=== PATIENT | female | born 1960 | race Caucasian/White ===

== ENCOUNTER 2023-05-10 15:06 | Observation (INO) | payer MEDICARE, SELFPAY ==
[2023-05-10] VITALS (19 sets, daily range): BP systolic 105–128; BP diastolic 66–92; PULSE 90–155; RESP 16–32; TEMP 36.7; O2SAT 94–100; BMI 20.1
--- NOTE | 2023-05-10 15:36 | XR_ITS ---
WS: [id number] PORTABLE CHEST HISTORY: sob COMPARISON: None available. Prior median sternotomy. Hyperinflation of the lungs. No pneumonia. Normal vascularity. No pleural effusion or pneumothorax. Cardiac size: Normal. Mediastinum/Aorta: Normal mediastinum. No osseous abnormality seen. XR/XR chest 1V portable [id number] IMPRESSION: Chronic emphysema. No acute pneumonia.
--- NOTE | 2023-05-10 16:37 | ECG_ITS ---
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 Measurements Intervals [place] Rate: 142 P: 72 NV: 141 QRS: 70 QRSD: 89 T: 83 QT: 328 QTc: 505 Interpretive Statements SINUS TACHYCARDIA ST DEVIATION AND MODERATE T-WAVE ABNORMALITY, CONSIDER LATERAL ISCHEMIA [-0.1+ mV T-WAVE IN I/aVL/V5/V6] No previous ECG available for comparison Electronically Signed On 05-11-2023 6:04:38 CDT by Agus Fernandez M.D. [id number]
--- NOTE | 2023-05-10 16:46 | ED_ITS ---
HPI - SOB/Dyspnea General: Chief Complaint: Shortness of Breath/Dyspnea Stated Complaint: SOB, Has COPD Time Seen by Provider: 05/10/23 16:36 Source: patient Mode of arrival: ambulatory History of Present Illness: HPI Narrative: 62-year-old female presents emergency room with complaints of shortness of b reath and rapid heart rate. She states this has been going on for the last 12 years. She states its been unchanged over the last 12 years. She does think it got worse over the last 4 days. She is traveling and ran out of oxygen. She is normally on 4 L. On arrival here patient is tachycardic is irregular. MD elicited complaint: shortness of breath and cough Pertinent past history: COPD Timing: constant Exacerbating factors: nothing Relieving factors: nothing Known history of: COPD Associated symptoms: Reports palpitations; Deny abdominal pain, chest pain, fever(s), nausea, orthopnea or vomiting Treatment prior to arrival: none Review of Systems Const: Denies: fever(s), chills, fatigue or malaise Card: Reports: palpitations; Denies: chest pain, edema, dyspnea on exertion or orthopnea Resp: Reports: dyspnea, non-productive cough and wheezing; Denies: productive cough GI: Denies: abdominal pain, nausea, vomiting, hematemesis, coffee ground emesis, diarrhea, constipation, bloating, hematochezia or melena : Denies: flank pain, difficulty voiding, dysuria, urinary frequency or urinary urgency Skin/Breast: Denies: rash or pruritus PFSH ED PFSH: Medical History Acute hypernatremia Anxiety End stage COPD Failure to thrive Hospice care Hypertension New onset a-fib Surgical History H/O aortic valve replacement Family History Other CAD (coronary artery disease) Social History Smoking and tobacco status: former smoker Lives independently: Yes Housing: House Physical Exam Const: GENERAL APPEARANCE: cooperative and comfortable ORIENTATI ON/CONSCIOUSNESS: Yes awake, Yes oriented to person, Yes oriented to place and Yes oriented to time HENMT: COMMON NORMALS: normocephalic, atraumatic and hearing grossly normal bilaterally HEAD & SCALP: normocephalic and atraumatic Resp: COMMON NORMALS: normal respiratory effort, No retractions, No use of accessory muscles and clear to auscultation bilaterally AUSCULTATION: clear to auscultation bilaterally Cardio: COMMON NORMALS: No murmurs present (Cardio) RATE: tachycardic RHYTHM: abnormal rhythm irregularly irregular GI: COMMON NORMALS: Soft to palpation and No hepatosplenomegaly present AUSCULTATION: Yes normoactive bowel sounds PALPATION: Yes Soft to palpation, No Tenderness to palpation present (GI), No Guarding due to palpation present (GI) and Yes No hepatosplenomegaly present Extremity: COMMON NORMALS: normal to inspection, capillary refill normal, no clubbing, cyanosis or edema, no calf tenderness and no pedal edema Neuro: SENSORIUM/ORIENTATION: Yes oriented to person, Yes oriented to place and Yes oriented to time Skin: COMMON NORMALS: no rashes or lesions noted GENERAL SKIN EXAM: no rashes or lesions noted Course Vital Signs: Vital signs: Vital Signs Temperature 98.1 F 05/11/23 07:31 Pulse Rate 94 05/11/23 11:15 Respiratory Rate 22 H 05/11/23 11:45 Blood Pressure 130/79 05/11/23 07:31 Pulse Oximetry 94 05/11/23 11:45 Oxygen Delivery Me thod Nasal Cannula 05/11/23 11:15 Oxygen Flow Rate 3 05/11/23 07:41 MDM - SOB/Dyspnea Medical Decision Making Patient has significant hyponatremia as well as an irregularly irregular heart rate appears to be in A-fib responded well to diltiazem. Will admit for correction of hyponatremia discussed with Dr. Diaz. Orders written Medical Records I reviewed the patient's medical records. Lab Data I reviewed the patient's lab results. 05/11/23 03:21 05/11/23 03:21 Labs/Radiology: Radiology Impressions Chest X-Ray 05/10/23 15:36 IMPRESSION: Chronic emphysema. No acute pneumonia. Chest CTA 05/10/23 18:38 IMPRESSION: 1. No acute findings. 2. Severe emphysema. COMMENTS: In the absence of a history or active diagnosis of lung cancer, it is recommended that this patient with emphysema be evaluated for enrollment in a low dose CT lung cancer screening program. Laboratory Results WBC 5.8 10^3/uL (4.0-10.0) 05/10/23 16:52 RBC 4.46 10^6/uL (4.1-5.3) 05/10/23 16:52 Hgb 12.9 g/dL (11.5-15.3) 05/10/23 16:52 Hct 41.2 % (37.0-47.0) 05/10/23 16:52 MCV 92.4 fl (81-99) 05/10/23 16:52 MCH 28.9 pg (28.0-34.0) 05/10/23 16:52 MCHC 31.3 g/dL (30.0-36.0) 05/10/23 16:52 RDW 11.9 % (12.1-15.1) L 05/10/23 16:52 Plt Count 175 10^3/cmm (130-400) 05/10/23 16:52 MPV 10.0 fL (7.4-10.4) 05/10/23 16:52 Neut % (Auto) 69.0 % 05/10/23 16:52 Lymph % (Auto) 22.3 % 05/10/23 16:52 [place] % (Auto) 6.2 % 05/10/23 16:52 Eos % (Auto) 1.7 % 05/10/23 16:52 Baso % (Auto) 0.5 % 05/10/23 16:52 Neut # (Auto) 3.99 10^3/uL (1.8-7.7) 05/10/23 16:52 Lymph # (Auto) 1.3 10^3/uL (0.8-4.8) 05/10/23 16:52 [place] # (Auto) 0.4 10^3/uL (0.2-0.9) 05/10/23 16:52 Eos # (Auto) 0.1 10^3/uL (0.0-0.8) 05/10/23 16:52 Baso # (Auto) 0.0 10^3/uL (0.0-0.1) 05/10/23 16:52 Nucleated RBC % (auto) 0 % 05/10/23 16:52 Nucleated RBCs # 0.0 /100WBC 05/10/23 16:52 D-Dimer 3.45 ug/mIFEU (0-0.59) H 05/10/23 16:52 Sodium 146 mmol/L (136-145) H 05/10/23 16:52 Potassium 3.9 mmol/L (3.5-5.1) 05/10/23 16:52 Chloride 97 mmol/L (98-107) L 05/10/23 16:52 Carbon Dioxide 41 mmol/L (22-29) H 05/10/23 16:52 Anion Gap 11.9 (5-19) 05/10/23 16:52 BUN 20 mg/dL (8-23) 05/10/23 16:52 Creatinine 0.3 mg/dL (0.5-0.9) L 05/10/23 16:52 GFR Calculation 224.0 mL/min (90-130) H 05/10/23 16:52 Glucose 122 mg/dL (65-115) H 05/10/23 16:52 Estimat Average Glucose 114 05/10/23 16:52 Hemoglobin A1c 5.6 % (4.0-6.0) 05/10/23 16:52 Calculated Osmolality 306 mOsm/kg (285-295) H 05/10/23 16:52 Calcium 9.2 mg/dL (8.5-10.5) 05/10/23 16:52 Total Bilirubin 0.2 mg/dL (0.15-1.2) 05/10/23 16:52 AST 29 U/L (0-32) 05/10/23 16:52 ALT 50 U/L (0-33) H 05/10/23 16:52 Alkaline Phosphatase 44 U/L (35-105) 05/10/23 16:52 Troponin T Baseline 32 ng/L (0-10) H 05/10/23 16:52 Total Protein 6.9 g/dL (6.6-8.7) 05/10/23 16:52 Albumin 4.5 g/dL (3.5-5.2) 05/10/23 16:52 Globulin 2.4 g/dL (1.3-4.6) 05/10/23 16:52 TSH 1.15 uIU/mL (0.27-4.20) 05/10/23 16:52 Discharge Plan Discharge Patient Disposition: Admitted As Inpatient Admit Provider: Garth Menezes Clinical Impression: Atrial fibrillation, Acute exacerbation of chronic obstructive airways disease, Acute hyponatremia Condition: Stable Coding Level of Care Code ED Promotions Team Leader for Mukesh Hamlin
[2023-05-10] MEDS: dilTIAZem 5 mg/mL SDV 5 mL 10 MG IVP (16:56)
[2023-05-10] MEDS: dilTIAZem 100 MG in sodium chloride 0.9% (add-van) 100 ML IV (16:57)
--- NOTE | 2023-05-10 17:01 | PC.NURSE ---
assumed care 1630
[2023-05-10 17:04] LABS: Basophils % 0.5 %; Eosinophils # 0.1 10^3/uL (0.0-0.8); Eosinophils % 1.7 %; Hematocrit 41.2 % (37.0-47.0); Hemoglobin 12.9 g/dL (11.5-15.3); Lymphocytes # 1.3 10^3/uL (0.8-4.8); Lymphocytes % 22.3 %; Mean Corpuscular HGB Conc 31.3 g/dL (30.0-36.0); Mean Corpuscular Hemoglobin 28.9 pg (28.0-34.0); Mean Corpuscular Volume 92.4 fl (81-99); Monocytes # 0.4 10^3/uL (0.2-0.9); Monocytes % 6.2 %; Neutrophils # 3.99 10^3/uL (1.8-7.7); Nucleated Red Blood Cells % 0 %; Platelet Count 175 10^3/cmm (130-400); Red Blood Count 4.46 10^6/uL (4.1-5.3); Red Cell Distribution Width 11.9 % (12.1-15.1); White Blood Count 5.8 10^3/uL (4.0-10.0)
[2023-05-10 17:28] LABS: Troponin(5th) Baseline 32 ng/L (0-10)
[2023-05-10 17:37] LABS: Alanine Aminotransferase 50 U/L (0-33); Albumin Level 4.5 g/dL (3.5-5.2); Alkaline Phosphatase 44 U/L (35-105); Anion Gap 11.9 (5-19); Aspartate Amino Transferase 29 U/L (0-32); Blood Urea Nitrogen 20 mg/dL (8-23); Calcium 9.2 mg/dL (8.5-10.5); Chloride 97 mmol/L (98-107); Globulin 2.4 g/dL (1.3-4.6); Glucose 122 mg/dL (65-115); Osmolality Calculated 306 mOsm/kg (285-295); Potassium 3.9 mmol/L (3.5-5.1); Sodium 146 mmol/L (136-145); Thyroid Stimulating Hormone 1.15 uIU/mL (0.27-4.20); Total Bilirubin 0.2 mg/dL (0.15-1.2); Total Protein 6.9 g/dL (6.6-8.7)
[2023-05-10 17:38] LABS: Creatinine Clr Calc Pharmacy 149.5909
[2023-05-10 17:39] LABS: Carbon Dioxide 41 mmol/L (22-29)
--- NOTE | 2023-05-10 17:45 | P.HP_ITS ---
Providers/Chief Complaint Chief Complaint: SOB, Has COPD History of Present Illness Shy Flores is a 62 year old female with history of aortic valve replacement, end-stage COPD, who recently rescinded her hospice care at [place] in the process of moving to [place] with her son presented with chief complaint of worsening of shortness of breath, in the ER she was diagnosed with A-fib RVR currently on Cardizem drip at 10 mg, heart rate fluctuating between 1 10-1 15, patient does not experience any chest pain or shortness of breath at time of my evaluation at baseline uses 2 L. Patient is stating that she has rescinded her hospice care which was recommended because of her end-stage COPD noncompliance and significant weight loss. She was living alone in [place]. Son is planning to take her to [place] in his car, he is stating that he has enough oxygen tanks. Patient is not on aspirin or Eliquis despite A-fib, she is not sure why. Patient is stating that she is DNI/DNI Review of Systems Const: Reports: chills Eyes: Denies: change in vision ENMT: Denies: throat pain Card: Denies: chest pain Resp: Reports: dyspnea GI: Denies: abdominal pain : Denies: urinary frequency Musc: Reports: back pain; Denies: neck pain Skin/Breast: Denies: rash Neuro: Denies: headache(s) Psych: Reports: anxiety Medications/Allergies Allergies Allergy/AdvReac Type Severity Reaction Status Date / Time ketorolac [From Toradol] Allergy ADR-Gastrointestinal Verified 05/10/23 16:56 Upset Penicillins Allergy ALGY-Rash Verified 05/10/23 16:56 PFSH Acute PFSH: Medical History (Updated 05/10/23 @ 18:32 by Garth Menezes MD) Anxiety End stage COPD Hospice care Hypertension Surgical History (Updated 05/10/23 @ 18:32 by Garth Menezes MD) H/O aortic valve replacement Family History (Updated 05/10/23 @ 18:33 by Garth Menezes MD) Other CAD (coronary artery disease) Social History (Updated 05/10/23 @ 18:33 by Garth Menezes MD) Smoking and tobacco status: former smoker Lives independently: Yes Housing: House Vitals/I&O/Wt Last Vital Signs Temp 98.1 F 05/10/23 15:14 Pulse 155 H 05/10/23 15:14 Resp 18 05/10/23 15:14 BP 105/74 05/10/23 15:14 Pulse Ox 99 05/10/23 15:14 O2 Del Method Nasal Cannula 05/10/23 15:14 O2 Flow Rate 4 05/10/23 15:14 Weight last 48 hrs Weight 49.895 kg Physical Exam Narrative: Malnourished Weight loss is apparent Muscle mass loss Currently on 2 L A-fib RVR Currently on Cardizem drip Awake and alert GCS 15 Nonfocal neuro exam Variable S1-S2 abdomen soft No signs of edema Data 05/10/23 16:52 05/10/23 16:52 A&P Assessment and plan (1) Acute hypernatremia: (2) New onset a-fib: (3) Failure to thrive: Plan A-fib RVR Chronic history Patient at home takes diltiazem 240 mg, I do not see any aspirin or Eliquis in her home meds She was on hospice at some point for end-stage COPD which she has recently rescinded I would put her on higher dose of Cardizem 360 mg on discharge, start p.o. Cardizem along Cardizem drip [id number] 4 I will prescribe her Eliquis at the time of discharge as well Requested D-dimer TSH is normal End-stage COPD 3 L of oxygen at baseline Patient is moving to [place] DNR/DNI No active wheezing Continue DuoNeb or Xopenex Hypertension: Hold antihypertensive regimen because patient is on Cardizem drip which can drop her blood pressure Muscle mass loss, protein calorie malnourishment Patient will need Ensure, DNR/DNI Cardiac diet Currently on therapeutic Lovenox Son at the bedside Plan to discharge her tomorrow Attestations Medical Necessity Statement*: Plan to discharge her within 48 hours Diagnoses Acute hypernatremia E87.0 New onset a-fib I48.91 Failure to thrive
[2023-05-10 18:11] LABS: Add Urine Microscopic? NO; Charge for UA Resulting for Rev
[2023-05-10 18:19] LABS: D Dimer 3.45 ug/mIFEU (0-0.59)
[2023-05-10 18:22] LABS: Urine Appearance Clear (CLEAR); Urine Color Yellow (Yellow); pH Urine 8 (5-7)
[2023-05-10 18:23] LABS: Bilirubin Urine Neg (Negative); Blood Urine Neg (Negative); Glucose Urine UA Norm (Normal); Ketones Urine 1+ (Negative); Leukocyte Esterase Urine Negative (Negative); Nitrate Urine Negative (Negative); Protein Urine Neg (Negative); Urobilinogen Urine Norm (Negative)
--- NOTE | 2023-05-10 18:38 | CTR_ITS ---
PROCEDURE INFORMATION: Exam: CTA Chest With Contrast Exam date and time: 05/10/2023 7:22 PM Age: 62 years old Clinical indication: Abnormal findings; Abnormal diagnostic tests; Elevated d-dimer; Shortness of breath; Prior surgery; Surgery date: 6+ months; Surgery type: Aortic valve; Patient HX: SOB with afib. D dimer of 3.45. History of copd. TECHNIQUE: Imaging protocol: Computed tomographic angiography of the chest with contrast. Exam focused on the arteries. 3D rendering (Not supervised by radiologist): MIP and/or 3D reconstructed images were created by the technologist. Radiation optimization: All CT scans at this facility use at least one of these dose optimization techniques: automated exposure control; mA and/or kV adjustment per patient size (includes targeted exams where dose is matched to clinical indication); or iterative reconstruction. Contrast material: OMNI 350; Contrast volume: 62 ml; Contrast route: INTRAVENOUS (IV); REPORTING DATA: Count of CT and Cardiac NM exams in prior 12 months: This patient has received 0 known CTs and 0 known cardiac nuclear medicine studies in the 12 months prior to the current study. COMPARISON: CR XR chest 1V portable [id number] 05/10/2023 3:41 PM RADIATION DOSE METRICS: Total DLP (mGy-cm): 184.12 FINDINGS: Pulmonary arteries: Normal. No pulmonary emboli. Aorta: Right sided aortic arch. No aneurysm or dissection. Lungs: Severe emphysema. Mild scattered scarring in both lungs. No consolidation. No nodule. Pleural spaces: Unremarkable. No pneumothorax. No pleural effusion. Heart: Unremarkable. No cardiomegaly. No pericardial effusion. Lymph nodes: Calcified right hilar lymph nodes. Spleen: Splenomegaly. Bones/joints: Sternotomy changes. Mild degenerative changes of the spine. No acute fracture. Soft tissues: Unremarkable. CT/CT angio chest PE protcl [id number] IMPRESSION: 1. No acute findings. 2. Severe emphysema. COMMENTS: In the absence of a history or active diagnosis of lung cancer, it is recommended that this patient with emphysema be evaluated for enrollment in a low dose CT lung cancer screening program.
--- NOTE | 2023-05-10 18:39 | ECG_ITS ---
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 Measurements Intervals [place] Rate: 117 P: 76 DC: 154 QRS: 78 QRSD: 99 T: 89 QT: 297 QTc: 415 Interpretive Statements SINUS TACHYCARDIA POSSIBLE RIGHT ATRIAL ENLARGEMENT [0.25mV P-WAVE] POSSIBLE LEFT ATRIAL ENLARGEMENT [-0.1mV P-WAVE IN V1/V2] PATTERN CONSISTENT WITH PULMONARY DISEASE SEPTAL MYOCARDIAL INFARCTION , OF INDETERMINATE AGE [40+ ms Q WAVE IN V1/V2] Compared to ECG 05/10/2023 16:37:09 Myocardial infarct finding now present T-wave abnormality no longer present Possible ischemia no longer present Electronically Signed On 05-11-2023 6:02:26 CDT by Agus Fernandez M.D. [id number]
[2023-05-10] MEDS: iohexol 350 mg/mL 500 mL Btl (per mL) IV (19:29)
[2023-05-10 19:39] LABS: Troponin 5 2HR 29.48 ng/L (0-10)
[2023-05-10 19:45] LABS: Troponin 5 2HR Delta -2.52 ABS# (0-10)
--- NOTE | 2023-05-10 19:48 | USCV_ITS ---
Shy Flores Age: 62 Gender: F : 1960 Exam Date: 05/10/2023 21:29 Ordering Phys: Garth Menezes MD Technologist: DINO Exam Location: [facility] [place] Indication: short of breath BP: / HR: 92 Rhythm: Sinus Technical Quality: Poor secondary to COPD MEASUREMENTS (Male / Female) Normal Values 2D ECHO LV Diastolic Diameter PLAX 5.2 cm 4.2 - 5.9 / 3.9 - 5.3 cm LV Systolic Diameter PLAX 3.4 cm IVS Diastolic Thickness 0.6 cm 0.6 - 1.0 / 0.6 - 0.9 cm IVS Systolic Thickness 0.9 cm LVPW Diastolic Thickness 0.6 cm 0.6 - 1.0 / 0.6 - 0.9 cm LVPW Systolic Thickness 1.0 cm LVOT Diameter 2.2 cm LV Ejection Fraction 2D Teich 62.1 % LA Diameter 2.2 cm IVC Diameter 1.6 cm M-MODE MV E Point Septal Separation 0.5 cm DOPPLER LVOT Peak Velocity 67.0 cm/s MV Area PHT 4.4 cm squared Mitral E to A Ratio 1.1 MV E' Velocity 57.0 cm/s PV Peak Velocity 87.0 cm/s FINDINGS Left Ventricle Normal left ventricular cavity size. Normal left ventricular systolic function. Left ventricular ejection fraction is estimated at 60-65 %. No diagnostic regional wall motion abnormality. Right Ventricle Normal right ventricular size and systolic function. Right Atrium Normal right atrial size. Left Atrium Normal left atrial size. Mitral Valve Thickened mitral valve. Aortic Valve Aortic valve not well visualized. No aortic valve stenosis. No aortic valve regurgitation. Tricuspid Valve Structurally normal tricuspid valve. Trace tricuspid valve regurgitation. Pulmonic Valve Pulmonic valve not well visualized. Pericardium No pericardial effusion. Aorta Normal size aortic root and proximal ascending aorta. IVC Normal IVC dimension with >50% respiratory change of the inferior vena cava. CONCLUSIONS 1. This is a technically difficult study. 2. Normal left ventricular cavity size and systolic function. Left ventricular ejection fraction is estimated at 60-65 %. No diagnostic regional wall motion abnormality. 3. No prior similar studies to compare. Keke Zhang MD (Electronically Signed) Final Date: 11 May 2023 15:28 S
[2023-05-10] MEDS: HYDROcodone-acetaminophen 5-325 mg Tablet 1 TAB PO (20:11)
[2023-05-10] MEDS: dilTIAZem 30 mg Tablet 60 MG PO (20:11)
[2023-05-10 20:13] LABS: Estmated Average Glucose 114; Hemoglobin A1C 5.6 % (4.0-6.0)
[2023-05-10 20:32] LABS: Vitamin B12 610 pg/mL (232-1245)
[2023-05-10] MEDS: enoxaparin 60 mg/0.6 mL Syringe 50 MG SUBCUT (21:13)
[2023-05-10] MEDS: dextrose 5%-sod chloride 0.45% 1,000 ML 75 ML IV (21:16)
--- NOTE | 2023-05-10 22:39 | ECG_ITS ---
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 Measurements Intervals [place] Rate: 83 P: 66 NC: 143 QRS: 63 QRSD: 98 T: 240 QT: 363 QTc: 428 Interpretive Statements SINUS RHYTHM ANTEROSEPTAL MYOCARDIAL INFARCTION , AGE INDETERMINATE Compared to ECG 05/10/2023 18:35:41 Sinus tachycardia no longer present Myocardial infarct finding still present Electronically Signed On 05-11-2023 6:02:05 CDT by Agus Fernandez M.D. [email or web address] [email or web address] medical specialty [email or web address].[email or web address]/[id number]
[2023-05-10 23:22] LABS: Troponin 5 6HR 30.16 ng/L (0-10)
--- NOTE | 2023-05-10 23:24 | PM.MISC ---
Miscellaneous Note Purpose of Documentation: CTSP Re: leaving AMA Note: Pt with severe SOLIS and generalized back pain. Pt was on percocet 10 mg prior to admission. She was on hopsice but revoked due to dis-satisfication with care/meds. She and her son are on their way to [place] and they lost AC in their car. They want to leave tomorrow. Pt and son reasonable and appreciative of care. I sat down with them and reviewed the medication that they have and need. While she prefers Klonopin they have lorazepam 1 mg tabs. I recommended continuing those until they see a new physician. Will change to ativan while here. They have run out of pain medications and I will order for discharge. Her afib is now converted and managed with short acting cardizem. While the son did not have pill box he reports that he has the bottle in the Jeep he just forgot to add to pill box. To do: Dilaudid 1 mg q2H prn Solis percocet 10/325 q4h prn d/c diltiazem encourage fluids. con't IV fluids, DO NOT change bag of fluids, stop after current bag Alma CASTILLO present for discussion and agrees with plan. Pt and son agree with plan.
[2023-05-10 23:27] LABS: Troponin 5 6HR Delta -1.84 ng/L (0-12)
[2023-05-10] MEDS: HYDROmorphone 1 mg/mL INJ 1 mL IVP (23:36)
[2023-05-10] MEDS: ipratropium-albuterol 3 mL Neb INHALATION (23:58)
[2023-05-11] VITALS (9 sets, daily range): BP systolic 107–130; BP diastolic 72–79; PULSE 72–94; RESP 16–22; TEMP 36.7–36.9; O2SAT 94–97
[2023-05-11] MEDS: dilTIAZem 30 mg Tablet 60 MG PO ×2 (01:59→08:29)
[2023-05-11 03:36] LABS: Basophils % 0.7 %; Eosinophils # 0.2 10^3/uL (0.0-0.8); Eosinophils % 3.5 %; Hematocrit 31.2 % (37.0-47.0); Hemoglobin 9.6 g/dL (11.5-15.3); Lymphocytes # 1.8 10^3/uL (0.8-4.8); Lymphocytes % 38.6 %; Mean Corpuscular HGB Conc 30.8 g/dL (30.0-36.0); Mean Corpuscular Hemoglobin 28.7 pg (28.0-34.0); Mean Corpuscular Volume 93.4 fl (81-99); Mean Platelet Volume 9.1 fL (7.4-10.4); Monocytes # 0.3 10^3/uL (0.2-0.9); Monocytes % 5.9 %; Neutrophils % 50.4 %; Nucleated Red Blood Cells % 0 %; Platelet Count 131 10^3/cmm (130-400); Red Blood Count 3.34 10^6/uL (4.1-5.3); White Blood Count 4.6 10^3/uL (4.0-10.0)
[2023-05-11] MEDS: oxyCODONE-APAP 10-325 mg Tablet 1 TAB PO ×2 (03:56→11:30)
[2023-05-11] MEDS: ondansetron 2 mg/ML SDV 2 mL 4 MG IVP (03:56)
[2023-05-11 03:58] LABS: Anion Gap 6.6 (5-19); Blood Urea Nitrogen 13 mg/dL (8-23); Calcium 8.8 mg/dL (8.5-10.5); Chloride 101 mmol/L (98-107); Glomerular Filtration Rate 160.7 mL/min (90-130); Glucose 165 mg/dL (65-115); Magnesium 1.6 mg/dL (1.7-2.3); Osmolality Calculated 308 mOsm/kg (285-295); Phosphorus 3.1 mg/dL (2.5-4.5); Potassium 4.6 mmol/L (3.5-5.1); Sodium 147 mmol/L (136-145)
[2023-05-11] MEDS: pneumococcal (23 valent) SDV 0.5 mL IM (03:58)
[2023-05-11 04:03] LABS: Carbon Dioxide 44 mmol/L (22-29)
[2023-05-11] MEDS: ipratropium-albuterol 3 mL Neb INHALATION (07:40)
[2023-05-11] MEDS: acetaminophen 500 mg Tablet PO (09:47)
--- NOTE | 2023-05-11 10:18 | PM.DCS ---
Discharge Providers Date of Admission: 05/10/23 17:47 Date of Discharge: May 11, 2023 Attending Provider at Admission: Garth Menezes MD Attending Provider at Discharge: Garth Menezes MD Diagnoses at Discharge Discharge Diagnosis (1) Acute hypernatremia: Status: Acute (2) New onset a-fib: Status: Acute (3) Failure to thrive: Status: Acute Reason for Visit Reason for Visit: SOB, Has COPD Hospital Course Hospital Course 62-year female who recently rescinded her hospice care for end-stage COPD, uses 3 L at baseline, planning to move to [place] with her son, uses opioids for her back pain presented with chief complaint palpitation shortness of breath she was diagnosed with A-fib RVR. She was put on Cardizem drip, at baseline she was using Cardizem extended release at home which I have increased at the time of discharge, [id number] is 4 added Eliquis as well, I prescribed Percocet to our pharmacy which was closed today I have sent another prescription to [facility]. We will give her Medrol pack along Spiriva and Advair. Patient seems to be doing poorly, she is DNI/DNI, losing muscle mass, protein calorie malnourishment. Son is stating that they have a doctor lined up in [place], they are eager to start the journey to [place] at this point. She does have a oxygen concentrator and 3 oxygen tanks, I did notify socially responsible investment adviser to help her out for oxygen supply at for her journey. Patient cannot do air travel, that was made clear to the son. Physical Exam Narrative: GCS 15 Nonfocal neuro exam Anxious Currently on 3 L Euvolemic A-fib converted to sinus rhythm Discharge Data Studies Completed and Pending Completed Studies During Hospitalization Category Date Time Status CTA PE [CT angio chest PE protcl [id number]] Stat Cat Scan 05/10/23 18:38 Completed XR chest 1V portable [id number] Urgent Exams 05/10/23 15:36 Completed Pending at discharge Category Date Time Status CV. echo complete* [id number] Routine Ultrasound 05/10/23 19:48 Taken Radiology Impressions Chest X-Ray 05/10/23 15:36 IMPRESSION: Chronic emphysema. No acute pneumonia. Chest CTA 05/10/23 18:38 IMPRESSION: 1. No acute findings. 2. Severe emphysema. COMMENTS: In the absence of a history or active diagnosis of lung cancer, it is recommended that this patient with emphysema be evaluated for enrollment in a low dose CT lung cancer screening program. Laboratory Results WBC 4.6 10^3/uL (4.0-10.0) 05/11/23 03:21 RBC 3.34 10^6/uL (4.1-5.3) L 05/11/23 03:21 Hgb 9.6 g/dL (11.5-15.3) L 05/11/23 03:21 Hct 31.2 % (37.0-47.0) L 05/11/23 03:21 MCV 93.4 fl (81-99) 05/11/23 03:21 MCH 28.7 pg (28.0-34.0) 05/11/23 03:21 MCHC 30.8 g/dL (30.0-36.0) 05/11/23 03:21 RDW 12.0 % (12.1-15.1) L 05/11/23 03:21 Plt Count 131 10^3/cmm (130-400) 05/11/23 03:21 MPV 9.1 fL (7.4-10.4) 05/11/23 03:21 Neut % (Auto) 50.4 % 05/11/23 03:21 Lymph % (Auto) 38.6 % 05/11/23 03:21 [place] % (Auto) 5.9 % 05/11/23 03:21 Eos % (Auto) 3.5 % 05/11/23 03:21 Baso % (Auto) 0.7 % 05/11/23 03:21 Neut # (Auto) 2.30 10^3/uL (1.8-7.7) 05/11/23 03:21 Lymph # (Auto) 1.8 10^3/uL (0.8-4.8) 05/11/23 03:21 [place] # (Auto) 0.3 10^3/uL (0.2-0.9) 05/11/23 03:21 Eos # (Auto) 0.2 10^3/uL (0.0-0.8) 05/11/23 03:21 Baso # (Auto) 0.0 10^3/uL (0.0-0.1) 05/11/23 03:21 Nucleated RBC % (auto) 0 % 05/11/23 03:21 Nucleated RBCs # 0.0 /100WBC 05/11/23 03:21 D-Dimer 3.45 ug/mIFEU (0-0.59) H 05/10/23 16:52 Sodium 147 mmol/L (136-145) H 05/11/23 03:21 Potassium 4.6 mmol/L (3.5-5.1) 05/11/23 03:21 Chloride 101 mmol/L (98-107) 05/11/23 03:21 Carbon Dioxide 44 mmol/L (22-29) H* 05/11/23 03:21 Anion Gap 6.6 (5-19) 05/11/23 03:21 BUN 13 mg/dL (8-23) 05/11/23 03:21 Creatinine 0.4 mg/dL (0.5-0.9) L 05/11/23 03:21 GFR Calculation 160.7 mL/min (90-130) H 05/11/23 03:21 Glucose 165 mg/dL (65-115) H 05/11/23 03:21 Estimat Average Glucose 114 05/10/23 16:52 Hemoglobin A1c 5.6 % (4.0-6.0) 05/10/23 16:52 Calculated Osmolality 308 mOsm/kg (285-295) H 05/11/23 03:21 Calcium 8.8 mg/dL (8.5-10.5) 05/11/23 03:21 Phosphorus 3.1 mg/dL (2.5-4.5) 05/11/23 03:21 Magnesium 1.6 mg/dL (1.7-2.3) L 05/11/23 03:21 Total Bilirubin 0.2 mg/dL (0.15-1.2) 05/10/23 16:52 AST 29 U/L (0-32) 05/10/23 16:52 ALT 50 U/L (0-33) H 05/10/23 16:52 Alkaline Phosphatase 44 U/L (35-105) 05/10/23 16:52 Troponin T Baseline 32 ng/L (0-10) H 05/10/23 16:52 Troponin T 120 Minute 29.48 ng/L (0-10) H 05/10/23 19:03 Delta Troponin T -2.52 ABS# (0-10) L 05/10/23 19:03 Troponin T Hi Sens 6Hr 30.16 ng/L (0-10) H 05/10/23 22:52 Troponin T Hi Sens 6Hr Delta -1.84 ng/L (0-12) L 05/10/23 22:52 C-Reactive Protein 3.0 mg/L (0.0-4.9) 05/11/23 03:21 Total Protein 6.9 g/dL (6.6-8.7) 05/10/23 16:52 Albumin 4.5 g/dL (3.5-5.2) 05/10/23 16:52 Globulin 2.4 g/dL (1.3-4.6) 05/10/23 16:52 Vitamin B12 610 pg/mL (232-1245) 05/10/23 19:03 TSH 1.15 uIU/mL (0.27-4.20) 05/10/23 16:52 Urine Color Yellow (Yellow) 05/10/23 18:05 Urine Appearance Clear (CLEAR) 05/10/23 18:05 Urine pH 8 (5-7) H 05/10/23 18:05 Ur Specific [place] 1.010 (1.005-1.030) 05/10/23 18:05 Urine Protein Neg (Negative) 05/10/23 18:05 Urine Glucose (UA) Norm (Normal) 05/10/23 18:05 Urine Ketones 1+ (Negative) H 05/10/23 18:05 Urine Blood Neg (Negative) 05/10/23 18:05 Urine Nitrate Negative (Negative) 05/10/23 18:05 Urine Bilirubin Neg (Negative) 05/10/23 18:05 Urine Urobilinogen Norm mg/dL (Negative) 05/10/23 18:05 Ur Leukocyte Esterase Negative (Negative) 05/10/23 18:05 Vitals Last Vital Signs Temp 98.1 F 05/11/23 07:31 Pulse 88 05/11/23 07:41 Resp 16 05/11/23 07:41 BP 130/79 05/11/23 07:31 Pulse Ox 96 05/11/23 07:41 O2 Del Method Nasal Cannula 05/11/23 07:41 O2 Flow Rate 3 05/11/23 07:41 Discharge Plan Discharge Patient Disposition: Home Condition: Stable Prescriptions: New Percocet 10-325 mg tablet 1 tab PO Q4H PRN (Reason: pain) Qty: 20 0RF diltiazem HCl 240 mg Capsule,Extended Release 24hr 240 mg PO DAILY Qty: 60 0RF oxycodone-acetaminophen 10-325 mg Tablet 1 tab PO Q4H PRN (Reason: Moderate To Severe Pain) Qty: 10 0RF Spiriva Respimat 2.5 mcg/actuation mist 2 inh inhalation DAILY Qty: 4 0RF Advair HFA 115-21 mcg/actuation HFA aerosol inhaler 2 inh inhalation BID Qty: 12 0RF Medrol (Storm) 4 mg tablets,dose pack See Rx Instructions .ROUTE .COMPLEX Qty: 21 0RF Rx Instructions: orally per package directions Eliquis 5 mg tablet 5 mg PO BID Qty: 60 0RF Percocet 5-325 mg tablet 1 tab PO Q8H PRN (Reason: pain) Qty: 14 0RF Percocet 5-325 mg tablet 1 tab PO Q8H Qty: 14 0RF Continued lorazepam 1 mg Tablet 1 mg PO BID PRN (Reason: Shortness Of Breath) bisacodyl 10 mg Suppository 10 mg AK DAILY PRN (Reason: Constipation) acetaminophen 650 mg Suppository 650 mg AK Q3H PRN (Reason: Fever) sumatriptan succinate 25 mg tablet 25 mg PO DIRECTED Rx Instructions: TAKE ONE TABLET BY MOUTH AT ONSET of migraine, MAY REPEAT AFTER TWO hours if HEADACHE returns, not TO exceed 200mg in 24 hours gabapentin 300 mg Capsule 300 mg PO DAILY Qty: 30 0RF Discontinued diltiazem HCl [Diltia XT] 120 mg Capsule,Ext.Rel 24h Degradable 120 mg PO DAILY Discharge Orders: Discharge Order (Routine); Ordered 05/11/23 Ordered By: Garth Menezes Patient Instructions: Diltiazem (By mouth) (Cardizem, Cardizem CD, Cardizem LA, Cardizem SR), Oxycodone/Acetaminophen (By mouth) (Percocet, Roxicet), Methylprednisolone (By mouth) (Medrol, Medrol Dosepak), Fluticasone (By breathing) (Arnuity Ellipta, Flovent Diskus,..., Tiotropium (By breathing) (Spiriva, Spiriva Respimat), Apixaban (By mouth) (Eliquis), A-fib (Atrial Fibrillation) (DC), COPD (Chronic Obstructive Pulmonary Disease) (DC), COPD Stoplight, Opioid Safety Discharge Attestations Time Spent in Discharge Care*: greater than 30 min Quality Metrics Clinical Quality Measures [ No reported AMI, CVA or VTE this stay] Coding Level of Care Code Acute Code for Chg Fwd Diagnoses Acute hypernatremia E87.0 New onset a-fib I48.91 Failure to thrive
[2023-05-11] MEDS: dilTIAZem ER (24HR) 240 mg Capsule PO (11:31)
[2023-05-11] MEDS: dexamethasone 4 mg Tablet 2 MG PO (11:31)
[2023-05-11] MEDS: gabapentin 100 mg Capsule PO (11:31)
[2023-05-11] MEDS: CLONazepam 0.5 mg Tablet 0.25 MG PO (11:40)
--- NOTE | 2023-05-11 12:43 | PC.NURSE ---
pt has refused to wear telemetry this shift.spot checks shows nsr.
--- NOTE | 2023-05-11 13:01 | PC.NURSE ---
prescriptions obtained through meds to beds program.discharge instructions given and explained to pt and son.they verb understanding.discharged via w/c to exit at this time.
== END 2023-05-11 13:02 | disposition home or self-care (01) ==
LOC: ER 17:02 → CSU 18:41
PROVIDERS: Physician Assistant; Admitting Provider Internal Medicine; Emergency Provider Family Medicine; Visit Provider Internal Medicine
DX: I48.91 Unspecified atrial fibrillation (principal); J43.9 Emphysema, unspecified; I10 Essential (primary) hypertension; R62.7 Adult failure to thrive; Z68.20 Body mass index [BMI] 20.0-20.9, adult; E46 Unspecified protein-calorie malnutrition; M54.9 Dorsalgia, unspecified; Z66 Do not resuscitate; Z99.81 Dependence on supplemental oxygen; Z87.891 Personal history of nicotine dependence; E87.0 Hyperosmolality and hypernatremia; Z95.5 Presence of coronary angioplasty implant and graft
CPT/HCPCS: 36415; 71045; 71275; 80048; 80053; 81003; 82607; 83036; 83735; 84100; 84443; 84484; 85025; 85378; 86140; 90471; 90732; 93005; 93306; 94640; 96361; 96365; 96366; 96372; 96375; 96376; 99285; G0378; J1170; J1650; J2405; J3490; J7799; J8540; Q9967